=== PATIENT | male | born 1975 ===

== ENCOUNTER 2025-02-17 18:42 | Emergency (ER) | payer OTHER | END 2025-02-17 20:25 | disposition home or self-care (01) | LOC: KA.ED 18:42 | DX: S40.011A Contusion of right shoulder, initial encounter (principal); Z79.899 Other long term (current) drug therapy; W00.9XXA Unspecified fall due to ice and snow, initial encounter; Y99.0 Civilian activity done for income or pay | CPT/HCPCS: 73030-RT; 99283 ==